=== PATIENT | female | born 1995 | race Caucasian/White ===

== ENCOUNTER 2017-03-21 17:17 | Inpatient (IN) | payer OTHER ==
[~2017-03-21] VITALS: Ht 170.2 cm; Wt 53.0 kg
[2017-03-21 17:35] VITALS: BP 136/78
[2017-03-21 18:39] LABS: BASOPHIL % 0.5 % (0-2); PLATELET COUNT 270 x10^3mcL (130-400)
[2017-03-21 18:44] LABS: CALCIUM 8.8 mg/dL (8.5-10.1); CARBON DIOXIDE 19.7 mmol/L (21-32); CHLORIDE SERUM 102 mmol/L (98-107); CREATININE SERUM 0.9 mg/dL (0.6-1.0); GFR1 > 60 mL/min; GLUCOSE SERUM 114 mg/dL (74-106); POTASSIUM SERUM 3.7 mmol/L (3.5-5.1); SODIUM SERUM 138 mmol/L (136-145)
[2017-03-21 18:48] LABS: ALBUMIN 4.3 g/dL (3.4-5.0); ALKALINE PHOSPHATASE 54 U/L (46-116); AST/SGOT 19 U/L (15-37); BILIRUBIN TOTAL 0.55 mg/dL (0.20-1.00)
[2017-03-21 18:58] LABS: ALT/SGPT 21 U/L (14-59)
[2017-03-21 19:02] LABS: TOTAL PROTEIN, SERUM 8.5 g/dL (6.4-8.2)
[2017-03-21 19:37] LABS: UA SPECIFIC GRAVITY >=1.030 (1.005-1.035); microscopic required? YES; urine erythrocyte 2+ (NEGATIVE)
[2017-03-21 19:46] LABS: AMPHETAMINE QUAL UR NONE DETECTED (NEG <=1000)
[2017-03-21] MEDS ORDERED: CITALOPRAM HYDR40 M1 PO (19:52)
[2017-03-21 20:05] VITALS: BP 123/76
[2017-03-21 20:26] LABS: T3 TOTAL 0.83 ng/mL
[2017-03-21 20:35] LABS: MAGNESIUM 2.1 mg/dL (1.8-2.4)
[2017-03-21 20:36] LABS: CHOLESTEROL/HDL RATIO 2.3
[2017-03-21 21:04] LABS: FREE T4 0.94 ng/dL (0.76-1.46); FREE THYROXINE INDEX 2.2 ug/dL (1.4-4.5); T4(THYROXINE) 5.9 ug/dL (4.7-13.3)
[2017-03-21 21:40] VITALS: BP 123/77
[2017-03-21 21:53] VITALS: BP 123/76
[2017-03-21 22:25] VITALS: BP 123/76
[2017-03-21 23:45] VITALS: BP 111/72
[2017-03-22] VITALS (18 sets, daily range): BP systolic 119–150; BP diastolic 63–80; Ht 170.2 cm; Wt 53.0 kg
[2017-03-22 05:31] LABS: BASOPHIL % 0.1 % (0-2); PLATELET COUNT 168 x10^3mcL (130-400); RED CELL DISTRIBUTION WIDTH 13.2 % (11.5-14.5)
[2017-03-22 05:46] LABS: CALCIUM 8.1 mg/dL (8.5-10.1); CARBON DIOXIDE 22.5 mmol/L (21-32); CHLORIDE SERUM 106 mmol/L (98-107); CREATININE SERUM 0.9 mg/dL (0.6-1.0); GFR1 > 60 mL/min; GLUCOSE SERUM 95 mg/dL (74-106); MAGNESIUM 1.9 mg/dL (1.8-2.4); PHOSPHOROUS 3.4 mg/dL (2.5-4.9); POTASSIUM SERUM 3.4 mmol/L (3.5-5.1); SODIUM SERUM 135 mmol/L (136-145)
[2017-03-23] VITALS (10 sets, daily range): BP systolic 110–152; BP diastolic 53–82
[2017-03-23 05:43] LABS: BASOPHIL % 0.1 % (0-2); PLATELET COUNT 144 x10^3mcL (130-400); RED CELL DISTRIBUTION WIDTH 13.2 % (11.5-14.5)
[2017-03-23 05:54] LABS: CALCIUM 8.4 mg/dL (8.5-10.1); CARBON DIOXIDE 25.5 mmol/L (21-32); CHLORIDE SERUM 105 mmol/L (98-107); CREATININE SERUM 0.6 mg/dL (0.6-1.0); GFR1 > 60 mL/min; GLUCOSE SERUM 116 mg/dL (74-106); POTASSIUM SERUM 3.8 mmol/L (3.5-5.1); SODIUM SERUM 138 mmol/L (136-145)
[2017-03-24 01:17] VITALS: BP 108/68
[2017-03-24 06:11] LABS: BASOPHIL % 0.3 % (0-2); PLATELET COUNT 161 x10^3mcL (130-400); RED CELL DISTRIBUTION WIDTH 13.2 % (11.5-14.5)
[2017-03-24 06:18] LABS: CALCIUM 8.3 mg/dL (8.5-10.1); CARBON DIOXIDE 26.7 mmol/L (21-32); CHLORIDE SERUM 103 mmol/L (98-107); CREATININE SERUM 0.6 mg/dL (0.6-1.0); GFR1 > 60 mL/min; GLUCOSE SERUM 91 mg/dL (74-106); MAGNESIUM 1.6 mg/dL (1.8-2.4); PHOSPHOROUS 3.3 mg/dL (2.5-4.9); POTASSIUM SERUM 3.9 mmol/L (3.5-5.1); SODIUM SERUM 138 mmol/L (136-145)
[2017-03-24 08:41] VITALS: BP 122/72
[2017-03-24] MEDS ORDERED: REM15 PO ×2 (10:08→11:03)
[2017-03-24 11:14] VITALS: BP 104/55
[2017-03-24 12:11] VITALS: BP 123/77
== END 2017-03-24 13:19 | disposition home or self-care (01) | DRG 812 ==
LOC: ED 17:17 → IC 19:30
PROVIDERS: Emergency Medicine; Family Medicine; Family Medicine Sports Medicine; ADMIT Student in an Organized Health Care Education/Training Program
PROC: 0BH17EZ Insertion of Endotracheal Airway into Trachea, Via Natural or Artificial Opening (ICD-10-PCS; principal; 2017-03-21)
PROC: 5A1945Z Respiratory Ventilation, 24-96 Consecutive Hours (ICD-10-PCS; 2017-03-21)
DX: T43.222A Poisoning by selective serotonin reuptake inhibitors, intentional self-harm, initial encounter (principal); G92 Toxic encephalopathy; R56.9 Unspecified convulsions; R45.851 Suicidal ideations; R00.0 Tachycardia, unspecified; Y92.009 Unspecified place in unspecified non-institutional (private) residence as the place of occurrence of the external cause; F31.9 Bipolar disorder, unspecified; E87.1 Hypo-osmolality and hyponatremia; E83.51 Hypocalcemia
CPT/HCPCS: 31500; 36600; 83880; 84439; A4628; C9113; G0480; J0696; J1956; J2060; J2704; J3475; J3480; J3490; J7030; J7620; Q0092